=== PATIENT | male | born 1945 | race Caucasian/White ===

== ENCOUNTER 2017-09-03 10:56 | Inpatient (IN) ==
--- NOTE | 2017-09-03 11:10 | Emergency Department Note ---
Disposition Clinical Impression: CVA (cerebral vascular accident) Qualifiers: CVA mechanism: unspecified Qualified Code(s): I63.9 - Cerebral infarction, unspecified Disposition: Admitted As Inpatient Condition: Fair Referrals: Cheo Bergman DO [Primary Care Provider] - Time of Disposition: 13:00 Neuro HPI - General Stated Complaint: acute stroke Time Seen by Provider: 09/03/17 10:57 Source: patient Mode of arrival: wheelchair Limitations: no limitations Nursing Notes Reviewed: Yes Vital Signs Reviewed: Yes - History of Present Illness HPI Narrative: 72-year-old who presents with acute confusion that began actually on 2017. Patient has been seen by neurology and actually was seen today for follow -up of an MRI. MRI shows a restricted diffusion in the left greater than right the differential to consider would be hypoxic ischemic injury or subacute infarct parietal lobes bilaterally. Discussion of with neurology indicates obtain imaging with and without and admit and they will see the patient in consult. Onset of Symptoms Date: 06/14/17 Symptom Onset Unknown: Yes Timing confirmed by: spouse Location: other (Confusion) Severity: none Symptoms Improving: No Improves with: none Worsens with: none Context: sudden onset On Anticoagulants: No Associated symptoms: Reports: confusion Treatments Prior to Arrival: none - Related Data Home Medications: Home Medications Medication Instructions Recorded Confirmed Atenolol [Tenormin] 75 mg PO DAILY 08/16/17 08/16/17 Atorvastatin [Lipitor] 20 mg PO HS 08/16/17 08/16/17 FLUoxetine HCl [PROzac] 20 mg PO DAILY 08/16/17 08/16/17 HydrOXYzine 25 mg PO TID 08/16/17 08/16/17 amLODIPine [Norvasc] 10 mg PO DAILY 08/16/17 08/16/17 Gatifloxacin 09/03/17 Ketorolac OPTH Soln [Acular] 09/03/17 PrednisoLONE Acetate 1% Opth 09/03/17 [PredFORTE 1%] Allergies/Adverse Reactions: Allergies Allergy/AdvReac Type Severity Reaction Status Date / Time No Known Allergies Allergy Verified 04/20/17 12:19 All systems ED: reviewed and negative except as stated. Constitutional: Denies: fever, chills, weakness, weight change Eyes: Denies: eye pain, eye discharge, vision change ENT ED: Denies: ear pain, throat pain, dental pain, hearing loss, epistaxis, congestion, dysphagia Cardiovascular: Denies: chest pain, palpitations, dyspnea on exertion, edema, syncope Respiratory: Denies: cough, dyspnea, wheezes, hemoptysis, stridor Gastrointestinal: Denies: abdominal pain, nausea, vomiting, diarrhea, constipation, hematemesis, melena, hematochezia Genitourinary: Denies: urgency, dysuria, frequency, hematuria Musculoskeletal: Denies: back pain, neck pain, arthralgia, myalgia Integumentary: Denies: rash, abrasion, lesions Neurological: Reports: confusion. Denies: headache, weakness, numbness, paresthesias, abnormal gait, vertigo Psychiatric: Denies: anxiety, depression, suicidal thoughts, homicidal thoughts , auditory hallucinations, visual hallucinations Endocrine: Denies: fatigue Hematological/Lymphatic: Denies: easy bleeding, easy bruising Allergic/Immunologic: Denies: facial swelling, urticaria Past Medical History - Past Medical History Medical history: Reports: cancer, hyperlipidemia, hypertension Surgical history: Reports: vasectomy Psychiatric history: Reports: anxiety, depression - Social History Smoking Status: Current every day smoker Smokeless Tobacco Status: No Alcohol use: Reports: none Drug use: Reports: none Physical Exam - General Limitations: no limitations General appearance: alert, in no apparent distress - Head Head exam: atraumatic, normocephalic, normal inspection - Eye Eye exam: Present: normal appearance, PERRL, EOMI - Expanded Eye Exam Pupils: Left: reactive - ENT ENT exam: normal exam, normal oropharynx, mucous membranes moist - Expanded ENT Exam External ear exam: Present: normal external inspection Mouth exam: Present: normal external inspection Teeth exam: Present: normal inspection Throat exam: Present: normal inspection - Neck Neck exam: Present: normal inspection, full ROM, trachea midline - Chest Chest inspection: Present: normal inspection, symmetric chest wall rise - Respiratory Respiratory exam: Present: normal lung sounds bilaterally - Cardiovascular Cardiovascular exam: Present: regular rate, normal rhythm, normal heart sounds - Abdominal Exam Abdominal exam: Present: soft, Non-Tender. Absent: tenderness, distention, guarding, rebound, rigidity - Extremities Exam Extremities exam: Present: normal inspection, full ROM. Absent: tenderness, pedal edema - Expanded Upper Extremity Exam Shoulder exam: Present: normal inspection, full ROM Arm exam: Present: normal inspection, full ROM Elbow exam: Present: normal inspection, full ROM Forearm/Wrist exam: Present: normal inspection, full ROM Hand exam: Present: normal inspection, full ROM Vascular exam: Normal: capillary refill, radial pulse - Expanded Lower Extremity Exam Hip/Pelvis exam: Present: normal inspection Upper leg exam: Present: normal inspection Knee exam: Present: normal inspection Lower leg exam: Present: normal inspection Ankle exam: Present: normal inspection Foot/toe exam: Present: normal inspection Neurovascular/Tendon exam: Absent: motor deficit, sensory deficit, tendon deficit - Back Exam Back exam: Present: normal inspection, full ROM. Absent: tenderness - Neurological Exam Neurological exam: Present: alert, oriented X3 - Expanded Neurological Exam Patient oriented to: Present: person, place, time Coma Scale Eye Opening: Spontaneous Coma Scale Motor Response: Obeys Commands Coma Scale Verbal Response: Oriented Coma Scale Total: 15 - Psychiatric Psychiatric exam: Present: normal affect, normal mood - Skin Skin exam: Present: warm, dry, intact, normal color Course - Reevaluation(s) Reevaluation #1: Patient is a 72-year-old whose had confusion symptoms since June 14. Patient is followed by neurology who will obtain an MRI with results reviewed with the patient today in a office visit. MRI shows possible stroke. Patient will be admitted for further evaluation and treatment. Time: 11:54 - Consultations Consultation #1: Discussed with Dr. Malave, clarence will see in consult. Patient's symptoms began June 14 and the patient is not a TPA candidate based on timing. Time: 11:54 Consultation #2: Discussed with clarence Arenas. Time: 11:54 Consultation #3: Radiology called nothing acute on the CT of the head and neck Time: 13:00 Vital Signs Temperature 98.2 F 09/03/17 11:06 Pulse Rate 46 09/03/17 11:06 Respiratory Rate 17 09/03/17 11:06 Blood Pressure 168/68 09/03/17 11:06 O2 Sat by Pulse Oximetry 97 09/03/17 11:06 Temperature 98.2 F 09/03/17 11:06 Pulse Rate 41 09/03/17 11:51 Respiratory Rate 16 09/03/17 11:51 Blood Pressure 148/76 09/03/17 11:51 O2 Sat by Pulse Oximetry 94 09/03/17 11:51 Oxygen Delivery Oxygen Delivery Room Air Neuro Symptoms/Deficit - Lab Data Lab results reviewed: Yes I reviewed the patient's lab results. Result diagrams: 09/03/17 10:58 09/03/17 10:58 Lab Results 09/03/17 09/03/17 09/03/17 Range/Units 10:58 10:58 10:58 WBC 10.4 (4.3-11.1) K/mcL RBC 4.41 (4.19-5.50) M/mcL Hgb 13.6 (12.9-16.9) g/dL Hct 39.6 (37.5-50.1) % MCV 89.8 (83.0-100.0) fL MCH 30.8 (28.0-33.3) pg MCHC 34.3 (31.6-35.5) g/dL RDW 14.7 H (11.5-14.5) % Plt Count 175 (140-400) K/mcL MPV 11.4 (9.4-12.4) fL Immature Gran % 0.4 (0-4) % Seg Neutrophils % 76.8 % Lymphocytes % 15.0 % Monocytes % 7.0 % Eosinophils % 0.4 % Basophils % 0.4 % Neutrophils # 8.0 (1.6-8.9) K/mcL Lymphocytes # 1.6 (0.6-4.6) K/mcL Monocytes # 0.7 (0.0-1.3) K/mcL Eosinophils # 0.0 (0.0-0.6) K/mcL Basophils # 0.0 (0.0-0.2) K/mcL PT 10.6 (9.4-12.1) Seconds INR 1.0 APTT 28.6 (26.0-36.0) Seconds Sodium 138 (136-145) mEq/L Potassium 3.8 (3.5-5.1) mEq/L Chloride 102 (98-107) mEq/L Carbon Dioxide 29 (23-29) mEq/L BUN 18 (8-23) mg/dL Creatinine 1.04 (0.70-1.30) mg/dL Est GFR ( Amer) > 60 (> 60) Est GFR (Non-Af Amer) > 60 (> 60) BUN/Creatinine Ratio 17 (6-26) Glucose 113 H (70-105) mg/dL Calculated Osmolality 289 (280-300) Calcium 9.2 (8.6-10.3) mg/dL Troponin I < 0.03 (< 0.04) ng/mL - Radiology Data Radiology results reviewed: Yes I reviewed the patient's radiology results. - EKG Data EKG attestation: Yes I reviewed and interpreted this EKG. EKG shows normal: sinus rhythm Rate: bradycardia Rhythm: NSR, PAC's [place]/QRS: normal Interpretation: no acute changes NIH Stroke Scale - Level of Consciousness LOC: Alert - LOC Questions LOC Questions: Answers both incorrectly - LOC Commands LOC Commands: Performs both correctly - Best Gaze Best Gaze: Normal - Visual Visual: No visual loss - Facial Palsy Facial Palsy: Normal - Motor Arms Motor Arm-Left: No drift for 10 seconds Motor Arm-Right: No drift for 10 seconds - Motor Legs Motor Leg-Left: No drift for 5 seconds Motor Leg-Right: No drift for 5 seconds - Limb Ataxia Limb Ataxia: Normal, No Ataxia - Sensory Sensory: Normal - Best Language Best Language: No aphasia - Dysarthria Dysarthria: Normal - Extinction and Inattention Extinction and Inattention: Normal - NIHSS Total Score NIHSS Total Score: 2 TPA Checklist - Eligibilty for IV tPA 1. LKW equal to or less than 4.5 hours be before treatment: No - LKW: 3-4.5 hrs Add. Warnings/Precautions Patient/family understanding: The patient/family members have been counseled and understood the risk, benefit , and alternatives of treatment.
[2017-09-03 11:16] LABS: Basophils % 0.4 %; Eosinophils % 0.4 %; Hematocrit 39.6 % (37.5-50.1); Hemoglobin 13.6 g/dL (12.9-16.9); Immature Granulocytes % 0.4 % (0-4); Lymphocytes # 1.6 K/mcL (0.6-4.6); Mean Corpuscular HGB Conc 34.3 g/dL (31.6-35.5); Mean Corpuscular Hemoglobin 30.8 pg (28.0-33.3); Mean Corpuscular Volume 89.8 fL (83.0-100.0); Mean Platelet Volume 11.4 fL (9.4-12.4); Monocytes # 0.7 K/mcL (0.0-1.3); Platelet Count 175 K/mcL (140-400); Red Blood Count 4.41 M/mcL (4.19-5.50); Red Cell Distribution Width 14.7 % (11.5-14.5); Segmented Neutrophils % 76.8 %
[2017-09-03 11:22] LABS: Prothrombin Time 10.6 Seconds (9.4-12.1)
[2017-09-03 11:25] LABS: Activated Partial Thrombo Time 28.6 Seconds (26.0-36.0)
[2017-09-03 11:39] LABS: BUN/Creatinine Ratio 17 (6-26); Blood Urea Nitrogen 18 mg/dL (8-23); Calcium 9.2 mg/dL (8.6-10.3); Carbon Dioxide 29 mEq/L (23-29); Chloride 102 mEq/L (98-107); Glucose 113 mg/dL (70-105); Osmolality,Calculated 289 (280-300); Potassium 3.8 mEq/L (3.5-5.1); Sodium 138 mEq/L (136-145); Troponin I < 0.03 ng/mL (< 0.04); eGFR For African Americans > 60 (> 60); eGFR For Non-African Americans > 60 (> 60)
[2017-09-03] MEDS ORDERED: Naloxone 0.4 MG/ML INJ IVP PRN (13:05)
--- NOTE | 2017-09-03 13:19 | Internal Med History&Physical ---
<Marshall Carranza - Last Filed: 09/03/17 16:42> Date of Encounter: 09/03/17 Time of Encounter: 13:13 Internal Medicine - H&P: HPI Chief complaint: Increasing confusion, concern for cerebral ischemia Admitted From: Home Plans for Post Hospital Care: Home History of present illness: Mr. Monge is a 72 year old male with a PMH of cancer, HLD and HTN. Presents today from the neurology office due to increasing confusion. The patient has been having worsening confusion since 06/14/17. He was at his neurologist's office today for follow-up on MRI. MRI shows a restricted diffusion in the parietal lobes left greater than right. Neurology is requested the patient be admitted for further workup and evaluation as there is concern for cerebral ischemia. Patient reports that throughout the last 2-1/2 months he has been having increasing confusion, he reports that he is no longer able to use a computer, cell phone or even television remote control as he can no longer comprehend how they function. He denies any vision changes, ataxia, headaches, paresthesias, chest pain, recent illnesses or ill contacts, N/V/D. As of today' s visit he is continuing to report confusion is now also experiencing some memory loss. Due to worsening clinical status he is being admitted for further evaluation. Past Med Surg Social Fam HX - Past Medical History Medical history: cancer, hyperlipidemia, hypertension Psychiatric history: anxiety, depression - Past Surgical History Surgical History: vasectomy - Social History Smoking Status: Current every day smoker Smokeless Tobacco Status: No Alcohol use: none Drug use: none - Family History Father Hx Family Cardiac Disorders: Yes ([place]) Internal Medicine - H&P: Meds Atenolol [Tenormin] 75 mg PO DAILY 08/16/17 [History] Atorvastatin [Lipitor] 20 mg PO HS 08/16/17 [History] FLUoxetine HCl [PROzac] 20 mg PO DAILY 08/16/17 [History] HydrOXYzine 25 mg PO TID 08/16/17 [History] amLODIPine [Norvasc] 10 mg PO DAILY 08/16/17 [History] 3 Allergy/AdvReac Type Severity Reaction Status Date / Time No Known Allergies Allergy Verified 04/20/17 12:19 All Systems PM: A 10-system review of systems was performed and is negative for pertinent findings except as documented above in the HPI. - Constitutional Constitutional: no chills, no fever(s), no night sweats - Cardiovascular Cardiovascular ROS IM: no chest pain, no diaphoresis, no dyspnea, no lightheadedness, no palpitations, no syncope - Respiratory Respiratory: no cough, no dyspnea, no wheezing, no excessive phlegm production - Gastrointestinal Gastrointestinal: no abdominal pain, no diarrhea, no hematemesis, no hematochezia, no melena, no nausea, no vomiting - Genitourinary Genitourinary ROS male: no difficulty urinating, no dysuria, no flank pain - Musculoskeletal Musculoskeletal ROS IM: no numbness, no tingling - Integumentary Integumentary IM: no rash, no unusual bruising - Neurological Neurological ROS: as per HPI - Constitutional Vitals: Temp Pulse Resp BP Pulse Ox 98.2 F 41 14 157/80 95 09/03/17 11:06 09/03/17 13:09 09/03/17 13:09 09/03/17 13:09 09/03/17 13:09 General appearance: Present: cooperative, A&O X 3, no acute distress, answers questions appropriately - Head Head exam: Present: atraumatic, normocephalic - Eye Eye exam: Present: PERRL, conjuntiva pink, sclera anicteric Pupils: Present: PERRL - Neck Neck exam general surgery: Present: supple, trachea midline. Absent: lymphadenopathy - Respiratory Respiratory exam: Present: CTAB. Absent: accessory muscle use, rales, rhonchi, wheezes - Cardiovascular Cardiovascular exam: Present: bradycardia, +S1, +S2. Absent: diastolic murmur, gallop, rubs, systolic murmur - GI/Abdominal GI/Abdominal exam: Present: normal bowel sounds, soft, no peritoneal signs. Absent: distended, tenderness - Extremities Exam Extremities exam: Present: warm, radial pulses palpable and symmetrical. Absent : calf tenderness, cyanotic, pedal edema - Neurological Exam Neurological exam: Present: CN II-XII intact, oriented X3, no focal deficits. Absent: pronater drift, facial droop, speech deficit - Skin Skin exam: Present: dry, intact Internal Med - H&P Results - Labs CBC & Chem 7: 09/03/17 10:58 09/03/17 10:58 Labs: Short CBC 09/03/17 Range/Units 10:58 WBC 10.4 (4.3-11.1) K/mcL Hgb 13.6 (12.9-16.9) g/dL Hct 39.6 (37.5-50.1) % Plt Count 175 (140-400) K/mcL Neutrophils # 8.0 (1.6-8.9) K/mcL BMP 09/03/17 10:58 Sodium 138 Potassium 3.8 Chloride 102 Carbon Dioxide 29 BUN 18 Creatinine 1.04 Glucose 113 H Calcium 9.2 Cardiac Enzymes 09/03/17 Range/Units 10:58 Troponin I < 0.03 (< 0.04) ng/mL - EKG Data -: EKG Interpreted by Myself EKG shows normal: sinus rhythm Rate: bradycardia - EKG Data Prior EKG available for review: no EKG comments: 09/03/17 13:20 My review of EKG reveals sinus bradycardia rate 46 with occasional supraventricular premature complexes, no ST elevation, depression or T-wave inversion noted - Impressions ITS Impressions Angiography CT 09/03/17 00:00 IMPRESSION: 1. No acute intracranial abnormality. Parenchymal volume loss and sequela of chronic microvascular ischemic changes. 2. No hemodynamically significant stenosis or branch occlusion in the cervical or intracranial arterial circulation. 3. 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 4. Heterogeneous thyroid gland with right thyroid lobe nodule measuring 1.8 x 2 cm. Nonemergent thyroid ultrasound recommended for further evaluation, per criteria listed below. Findings were discussed with Cliff Wallace at 12:48 pm on 09/03/2017. RECOMMENDATIONS: Managing Incidental Thyroid Nodule Detected at CT or MRI or US 1. Further evaluation by thyroid Ultrasound recommended for these incidental nodules: Patient Age 18 years or less - Nodule of any size Patient Age 19-34 years old - Nodule 1 cm in size or greater Patient Age 35 years or more - Nodule 1.5 cm in size or greater 2. Follow up thyroid ultrasound also recommend in these scenarios - Solitary nodule with high risk imaging features (locally invasive nodule or suspicious lymph nodes) - Heterogeneous, enlarged thyroid gland. - Increased uptake on PET 3. No further imaging is recommended in the following scenarios - Any nodule not meeting above criteria. - Those patients with limited life expectancy or significant co-morbidities. Note: These recommendations do not apply to pts. w/ increased risk for thyroid cancer or pts. with symptomatic thyroid disease. Recommendations for f/u of Incidental Thyroid Nodules (ITN) found on CT, MR, NM and Extrathyroidal US are based upon the ACR white paper and Uriarte 3-tiered system for managing ITNs: J Am Dakota Radiol. 2015 Jun;12(2): 143-50 D/ /03/2017 13:02:11 Donald Jorge MD / elijah Interpreting Provider: Donald Jorge MD Neck CTA 09/03/17 00:00 IMPRESSION: 1. No acute intracranial abnormality. Parenchymal volume loss and sequela of chronic microvascular ischemic changes. 2. No hemodynamically significant stenosis or branch occlusion in the cervical or intracranial arterial circulation. 3. 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 4. Heterogeneous thyroid gland with right thyroid lobe nodule measuring 1.8 x 2 cm. Nonemergent thyroid ultrasound recommended for further evaluation, per criteria listed below. Findings were discussed with Cliff Wallace at 12:48 pm on 09/03/2017. RECOMMENDATIONS: Managing Incidental Thyroid Nodule Detected at CT or MRI or US 1. Further evaluation by thyroid Ultrasound recommended for these incidental nodules: Patient Age 18 years or less - Nodule of any size Patient Age 19-34 years old - Nodule 1 cm in size or greater Patient Age 35 years or more - Nodule 1.5 cm in size or greater 2. Follow up thyroid ultrasound also recommend in these scenarios - Solitary nodule with high risk imaging features (locally invasive nodule or suspicious lymph nodes) - Heterogeneous, enlarged thyroid gland. - Increased uptake on PET 3. No further imaging is recommended in the following scenarios - Any nodule not meeting above criteria. - Those patients with limited life expectancy or significant co-morbidities. Note: These recommendations do not apply to pts. w/ increased risk for thyroid cancer or pts. with symptomatic thyroid disease. Recommendations for f/u of Incidental Thyroid Nodules (ITN) found on CT, MR, NM and Extrathyroidal US are based upon the ACR white paper and Uriarte 3-tiered system for managing ITNs: J Am Dakota Radiol. 2014;12(2): 143-50 D/ /03/2017 13:02:11 Donald Jorge MD / elijah Interpreting Provider: Donald Jorge MD - Assessment and plan (1) CVA (cerebral vascular accident) Current Visit: Yes Status: Resolved Assessment and plan: Presents from neurology office with concern for increasing confusion since 06/14. During his initial neurology evaluation his MRI showed restricted diffusion in the parietal lobes bilaterally left greater than right. CVA, vs Vasculitis. In addition to confusion he has short-term memory loss. No other neurological deficits. No focal deficits on exam. Lab work unremarkable. -Stat CT angiography and CTA of head of head and completed today and found to be negative for acute ischemia -TTE now -Start ASA -Continue Statin -NIHSS now -Dysphagia screening now -Neuro checks q4hrs -Consult Neurology- a physician spoke with Dr. Ayon who will see the patient in consultation. -Heparin 5000units SC BID -Continuous telemetry and SPO2 monitoring Qualifiers: CVA mechanism: unspecified Qualified Code(s): I63.9 - Cerebral infarction, unspecified (2) HTN (hypertension) Current Visit: Yes Status: Acute Assessment and plan: History of hypertension, HYDRALAZINE IVP 10mg Q6hprn for SBP greater than 160 Qualifiers: Hypertension type: essential hypertension Qualified Code(s): I10 - Essential (primary) hypertension (3) HLD (hyperlipidemia) Current Visit: Yes Status: Acute Qualifiers: Hyperlipidemia type: unspecified Qualified Code(s): E78.5 - Hyperlipidemia , unspecified (4) DVT prophylaxis Current Visit: Yes Status: Acute Assessment and plan: Heparin 5000 units SC BID - Time Spent With Patient Total time spent is greater than 50% in coordination of care (as documented) at patient's floor/unit and/or counseling patient: Greater than 35 minutes <[email or web address] [email or web address] - Last Filed: 09/03/17 17:14> Date of Encounter: 09/03/17 Time of Encounter: 15:30 All Systems PM: A 10-system review of systems was performed and is negative for pertinent findings except as documented above in the HPI. - Constitutional Vitals: Temp Pulse Resp BP Pulse Ox 98.1 F 42 18 144/76 95 09/03/17 15:45 09/03/17 15:45 09/03/17 15:45 09/03/17 15:45 09/03/17 15:45 General appearance: Present: cooperative, A&O X 3, pleasant, no acute distress - Head Head exam: Present: atraumatic - Eye Eye exam: Present: PERRL. Absent: scleral icterus Pupils: Present: normal accommodation - ENT ENT exam: Present: mucous membranes dry - Neck Neck exam general surgery: Present: full ROM, supple. Absent: tenderness, nuchal rigidity, thyromegaly - Expanded Neck Exam Neck exam: Absent: carotid bruit - Respiratory Respiratory exam: Present: CTAB - Cardiovascular Cardiovascular exam: Present: bradycardia, +S1, +S2. Absent: diastolic murmur, systolic murmur - GI/Abdominal GI/Abdominal exam: Present: soft. Absent: tenderness - Neurological Exam Neurological exam: Present: alert, CN II-XII intact, oriented X3, no focal deficits, strengths equal and symetr throughout Internal Med - H&P Results - Labs CBC & Chem 7: 09/03/17 10:58 09/03/17 10:58 Labs: Cardiac Enzymes 09/03/17 Range/Units 15:22 Troponin I < 0.03 (< 0.04) ng/mL - EKG Data -: EKG Interpreted by Myself EKG shows normal: sinus rhythm Rate: bradycardia - Attending Attestation I discussed the patient [place]CK[place], PMH, ROS, lab data, and exam findings with Marshall Carranza CNP. I then saw and examined patient independently as well. Patient and his friend state symptoms started about two months ago. He has no focal weakness or deficits. The only issue now is increasing confusion and forgetfulness. His friend also states that he has lost > 40# in the last year and that he has had a loss of appetite. He is a long time smoker and former heavy alcohol drinker. He had recent CT chest about 10 days ago which showed some nodules but no obvious malignancy. His head CT today also showed a thyroid nodule. Given the unexplained weight loss, appetite loss, and increasing confusion, I worry about an occult malignancy. Close follow up chest CT is recommended. I also asked Marshall to order a thyroid ultrasound to evaluate the nodule. I also asked him to order ionized calcium, Folate, and B12 levels in the morning. Neurology will be consulted as well and help with his work-up. Other than my comments above and noted exam findings, I agree with Marshall's assessment and plan. - Assessment and plan (1) CVA (cerebral vascular accident) Current Visit: Yes Status: Resolved Qualifiers: CVA mechanism: unspecified Qualified Code(s): I63.9 - Cerebral infarction, unspecified (2) HTN (hypertension) Current Visit: Yes Status: Acute Qualifiers: Hypertension type: essential hypertension Qualified Code(s): I10 - Essential (primary) hypertension (3) HLD (hyperlipidemia) Current Visit: Yes Status: Acute Qualifiers: Hyperlipidemia type: unspecified Qualified Code(s): E78.5 - Hyperlipidemia , unspecified (4) DVT prophylaxis Current Visit: Yes Status: Acute - Time Spent With Patient Total time spent is greater than 50% in coordination of care (as documented) at patient's floor/unit and/or counseling patient:
[2017-09-03] MEDS ORDERED: Aspirin 81 MG TAB.CHEW PO STA (13:26)
--- NOTE | 2017-09-03 17:08 | Electrocardiograph Report ---
[place] [id number] Test Date: 2017-09-03 Pat Name: Grover Monge Department: 104 Room: 2N04 Gender: M Bulldozer Operator: ROBBIE : 1945 Requested By: Cliff Wallace Order Number: [id number] Reading MD: Zarina Menendez Measurements Intervals Bradley Rate: 46 P: 63 ND: 169 QRS: 56 QRSD: 94 T: 37 QT: 435 QTc: 395 Interpretive Statements SINUS BRADYCARDIA WITH OCCASIONAL SUPRAVENTRICULAR PREMATURE COMPLEXES Electronically Signed On 09-03-2017 17:07:03 EDT by Zarina Menendez
[2017-09-03] MEDS: *HR* Heparin 5,000 UNIT/ML VIAL SQ SCH (21:24)
[2017-09-03] MEDS: hydrOXYzine pamoate 25 MG CAPSULE PO SCH (21:48)
[2017-09-04 05:05] LABS: Folate 9.9 ng/mL (3.0-16.0)
[2017-09-04] MEDS: *HR* Heparin 5,000 UNIT/ML VIAL SQ SCH ×2 (06:09→17:24)
[2017-09-04 06:21] LABS: VBG Ionized Calcium 1.15 mmol/L (1.15-1.35)
--- NOTE | 2017-09-04 08:06 | Neurology Progress Note ---
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 Generally laminar necrosis occurs in the face of global hypoxia often relative to cardiopulmonary arrest, or situations where there is profound hypoglycemia or anemia. Status epilepticus can also cause this. However office far as November panel and CBC had been unimpressive. 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 We will check methylmalonic acid since his B12 level was low , we will check RPR, EDEL, Lyme titer, angiotensin converting enzyme levels, sedimentation rate, serum immunoelectrophoresis, serum protein electrophoresis, C-reactive protein and an EEG. If this workup is negative then we will pursue LP. Certainly the anterior communicating artery aneurysm will require intervention however at this point I do not believe that is at risk for rupture and certainly it is not causing any mental status changes or the laminar necrosis. Qualifiers: Qualified Code(s): R41.82 - Altered mental status, unspecified Subjective Interval history: The chart was reviewed, patient was seen and examined. Case discussed with Dr. Malave. Patient is a 72-year-old male who was referred to Dr. Malave secondary to progressive cognitive decline. Apparently the symptoms have been present for about 2-1/2 months or so and have been increasingly evolving. According to the history and the chart he is no longer able to use a computer, cellphone or even television remote. At the bedside he is easily aroused to voice he does make eye contact however he cannot give any significant details as to why he is here. For the most part he simply answers "I do not know" He denies headache. Apparently he has not had any acute August epileptic event that can account for this. 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 He denies any history of seizures. He is a daily smoker. Objective - Constitutional Vitals: Temp Pulse Resp BP Pulse Ox 98.2 F 51 20 151/71 95 09/04/17 07:34 09/04/17 07:34 09/04/17 07:34 09/04/17 07:34 09/04/17 07:34 - Neurological Exam Motor examination - right side: 09/15: deltoids, biceps, triceps, process safety specialist, hip flexors, tibialis Anterior, quadriceps, toe extension (EHL), plantarflexion Motor examination - left side: 09/15: deltoids, biceps, triceps, hip flexors, process safety specialist , quadriceps, tibialis Anterior, toe extension (EHL), plantarflexion Sensation intact: Present: other (Difficult to assess sensory functions in an individual who is confused.) Reflex and gait examination: other (Deep tendon reflexes are 2 symmetrically of the biceps triceps and brachial radialis, 3 symmetrically at the patellar, 1 symmetrically at the Achilles. No clonus or Babinski are present.) Mental Status Examination: Present: awake, alert, oriented to person, follows commands appropriately (He follows some commands appropriately however he is apraxic with others.), opens eyes to voice, makes eye contact, hook and gasp reflex, motor apraxia. Absent: oriented to place, oriented to time Cranial nerve examination: Present: PERRL, EOMI, mastication intact, no facial asymmetry is present, no dysarthria, hearing is intact symmetrically Results - Laboratory Findings CBC and BMP: 09/03/17 10:58 09/03/17 10:58 Abnormal lab findings: Abnormal lab results RDW 14.7 % (11.5-14.5) H 09/03/17 10:58 Glucose 113 mg/dL (70-105) H 09/03/17 10:58 POC Glucose 118 mg/dL (70-99) H 09/03/17 11:01 Vitamin B12 232 pg/mL (250-1100) L 09/04/17 03:13 Consult Discharge Plan - Plan Referrals: Cheo Bergman DO [Primary Care Provider] - 09/10/17 11:30 am
[2017-09-04] MEDS ORDERED: amLODIPine 5 MG TABLET PO SCH (09:00)
[2017-09-04 09:05] LABS: C-Reactive Protein < 5 mg/L (Less than 10)
[2017-09-04] MEDS: hydrOXYzine pamoate 25 MG CAPSULE PO SCH ×3 (09:19→20:52)
[2017-09-04] MEDS: Aspirin 81 MG TAB.CHEW PO SCH (09:19)
[2017-09-04] MEDS: FLUoxetine 20 MG CAPSULE PO SCH (09:19)
[2017-09-04] MEDS ORDERED: Cyanocobalamin (B-12) 1,000 MCG/ML VIAL SQ ONE (09:46)
[2017-09-04 10:03] LABS: Thyroid Stimulating Hormone 0.385 mcIU/mL (0.340-5.600)
[2017-09-04] MEDS ORDERED: 0.9 % Sodium Chloride 250 ML ONE (13:44)
--- NOTE | 2017-09-04 15:57 | Internal Med Progress Note ---
Date of Encounter: 09/04/17 Time of Encounter: 09:30 - Assessment and plan (1) CVA (cerebral vascular accident) Current Visit: Yes Status: Suspected Assessment and plan: Presents from neurology office with concern for increasing confusion since 06/14. During his initial neurology evaluation his MRI showed restricted diffusion in the parietal lobes bilaterally left greater than right. CVA, vs Vasculitis. In addition to confusion he has short-term memory loss. No other neurological deficits. No focal deficits on exam. Lab work unremarkable. Continue telemetry monitoring. Continue aspirin. EEG performed today to r/o seizures. Follow neuro recs and requested labs with RPR, ESR Qualifiers: CVA mechanism: unspecified Qualified Code(s): I63.9 - Cerebral infarction, unspecified (2) HTN (hypertension) Current Visit: Yes Status: Acute Assessment and plan: History of hypertension, HYDRALAZINE IVP 10mg Q6hprn for SBP greater than 160 Qualifiers: Hypertension type: essential hypertension Qualified Code(s): I10 - Essential (primary) hypertension (3) HLD (hyperlipidemia) Current Visit: Yes Status: Acute Assessment and plan: Continue atorvastatin Qualifiers: Hyperlipidemia type: unspecified Qualified Code(s): E78.5 - Hyperlipidemia , unspecified (4) DVT prophylaxis Current Visit: Yes Status: Acute Assessment and plan: Heparin 5000 units SC BID - Time Spent With Patient Total time spent is greater than 50% in coordination of care (as documented) at patient's floor/unit and/or counseling patient: - Subjective Interval history: Admitted for worsening confusion. No acute events overnight - Constitutional Vitals: Temp Pulse Resp BP Pulse Ox 97.9 F 52 20 159/82 97 09/04/17 15:35 09/04/17 15:35 09/04/17 15:35 09/04/17 15:35 09/04/17 15:35 General appearance: Present: cooperative, A&O X 3, pleasant, no acute distress - Head Head exam: Present: atraumatic, normocephalic - Eye Eye exam: Present: PERRL - Respiratory Respiratory exam: Present: CTAB - Cardiovascular Cardiovascular exam: Present: +S1, +S2 - GI/Abdominal GI/Abdominal exam: Present: normal bowel sounds, soft - Neurological Exam Neurological exam: Present: alert Additional comments: pt takes time to answer basic questions. Not oriented to month and day Internal Medicine: Result - Labs CBC & Chem 7: 09/03/17 10:58 09/03/17 10:58 Labs: Cardiac Enzymes 09/03/17 Range/Units 15:22 Troponin I < 0.03 (< 0.04) ng/mL - ABG Interpretation ABG results: PT/INR, D-dimer PT 10.6 Seconds (9.4-12.1) 09/03/17 10:58 - Impressions Impressions Thyroid Ultrasound 09/04/17 15:30 IMPRESSION: Examination is limited in sensitivity. Manager [employer] states that the thyroid gland was difficult to image due to the positioning of the patient's clavicles. There is suggestion of 15 mm nodule in the inferior portion of the right lobe of the thyroid gland; however, on the images provided this is not well delineated. If there is ongoing concern, I would suggest a nuclear medicine uptake test to assess for any concerning/cold nodules. RECOMMENDATIONS: Managing Incidental Thyroid Nodule Detected at CT or MRI or US 1. Further evaluation by thyroid Ultrasound recommended for these incidental nodules: Patient Age 18 years or less - Nodule of any size Patient Age 19-34 years old - Nodule 1 cm in size or greater Patient Age 35 years or more - Nodule 1.5 cm in size or greater 2. Follow up thyroid ultrasound also recommend in these scenarios - Solitary nodule with high risk imaging features (locally invasive nodule or suspicious lymph nodes) - Heterogeneous, enlarged thyroid gland. - Increased uptake on PET 3. NO further imaging is recommended in the following scenarios - Any nodule not meeting above criteria. - Those patients with limited life expectancy or significant Co-morbidities. Note: These recommendations do not apply to pts. w/ increased risk for thyroid cancer or pts. with symptomatic thyroid disease. Recommendations for f/u of Incidental Thyroid Nodules (ITN) found on CT, MR, NM and Extrathyroidal US are based upon the ACR white paper and Uriarte 3-tiered system for managing ITNs: J Am Dakota Radiol. 2015 Jun;12(2): 143-50 D/ / Rashi Richardson / Rashi Richardson Interpreting Provider: Rashi Richardson Consult Discharge Plan - Plan Referrals: Cheo Bergman DO [Primary Care Provider] - 09/10/17 11:30 am
[2017-09-05 05:05] LABS: Basophils % 0.5 %; Eosinophils # 0.1 K/mcL (0.0-0.6); Eosinophils % 1.5 %; Hematocrit 35.7 % (37.5-50.1); Hemoglobin 12.2 g/dL (12.9-16.9); Immature Granulocytes % 0.5 % (0-4); Lymphocytes # 2.2 K/mcL (0.6-4.6); Lymphocytes % 25.8 %; Mean Corpuscular HGB Conc 34.2 g/dL (31.6-35.5); Mean Corpuscular Volume 90.6 fL (83.0-100.0); Mean Platelet Volume 12.4 fL (9.4-12.4); Monocytes # 0.7 K/mcL (0.0-1.3); Monocytes % 8.6 %; Neutrophils # 5.5 K/mcL (1.6-8.9); Platelet Count 142 K/mcL (140-400); Red Blood Count 3.94 M/mcL (4.19-5.50); Red Cell Distribution Width 14.7 % (11.5-14.5); Segmented Neutrophils % 63.1 %
[2017-09-05 05:19] LABS: BUN/Creatinine Ratio 19 (6-26); Blood Urea Nitrogen 15 mg/dL (8-23); Calcium 8.7 mg/dL (8.6-10.3); Carbon Dioxide 29 mEq/L (23-29); Chloride 106 mEq/L (98-107); Glucose 97 mg/dL (70-105); Magnesium 1.8 mg/dL (1.6-2.6); Osmolality,Calculated 287 (280-300); Potassium 3.3 mEq/L (3.5-5.1); Sodium 138 mEq/L (136-145); eGFR For African Americans > 60 (> 60); eGFR For Non-African Americans > 60 (> 60)
[2017-09-05] MEDS: *HR* Heparin 5,000 UNIT/ML VIAL SQ SCH ×2 (06:02→16:48)
[2017-09-05] MEDS: hydrOXYzine pamoate 25 MG CAPSULE PO SCH ×3 (07:56→20:53)
[2017-09-05] MEDS: Cyanocobalamin (B-12) 1,000 MCG TABLET PO SCH (07:56)
[2017-09-05] MEDS: FLUoxetine 20 MG CAPSULE PO SCH (07:56)
[2017-09-05] MEDS: Aspirin 81 MG TAB.CHEW PO SCH (07:56)
[2017-09-05] MEDS ORDERED: Potassium Chloride Elixir 20 MEQ/15 ML UDC PO ONE (08:07)
--- NOTE | 2017-09-05 08:14 | Internal Med Progress Note ---
Date of Encounter: 09/05/17 Time of Encounter: 08:00 - Assessment and plan (1) Mental status change Current Visit: Yes Status: Acute Assessment and plan: Mental status change with subacute cognitive decline. MRI showed cortical laminar necrosis. Labs significant for B12 deficiency. Started on B12 supplementation Follow neuro recs Qualifiers: (2) CVA (cerebral vascular accident) Current Visit: Yes Status: Suspected Assessment and plan: Presents from neurology office with concern for increasing confusion since 06/14. During his initial neurology evaluation his MRI showed restricted diffusion in the parietal lobes bilaterally left greater than right. CVA, vs Vasculitis. In addition to confusion he has short-term memory loss. No other neurological deficits. No focal deficits on exam. Lab work unremarkable. Continue telemetry monitoring. Continue aspirin. EEG performed today to r/o seizures. Follow neuro recs and requested labs with RPR, ESR Qualifiers: CVA mechanism: unspecified Qualified Code(s): I63.9 - Cerebral infarction, unspecified (3) HTN (hypertension) Current Visit: Yes Status: Acute Assessment and plan: History of hypertension, HYDRALAZINE IVP 10mg Q6hprn for SBP greater than 160 Qualifiers: Hypertension type: essential hypertension Qualified Code(s): I10 - Essential (primary) hypertension (4) HLD (hyperlipidemia) Current Visit: Yes Status: Acute Assessment and plan: Continue atorvastatin Qualifiers: Hyperlipidemia type: unspecified Qualified Code(s): E78.5 - Hyperlipidemia , unspecified (5) DVT prophylaxis Current Visit: Yes Status: Acute Assessment and plan: Heparin 5000 units SC BID - Time Spent With Patient Total time spent is greater than 50% in coordination of care (as documented) at patient's floor/unit and/or counseling patient: - Subjective Interval history: Admitted for worsening confusion. No acute events overnight - Constitutional Vitals: Temp Pulse Resp BP Pulse Ox 97.7 F 51 16 184/91 98 09/05/17 06:57 09/05/17 06:57 09/05/17 06:57 09/05/17 06:57 09/05/17 06:57 General appearance: Present: cooperative, A&O X 1, pleasant, no acute distress - Head Head exam: Present: atraumatic, normocephalic - Respiratory Respiratory exam: Present: CTAB. Absent: accessory muscle use, rales, rhonchi, wheezes - Neurological Exam Neurological exam: Present: CN II-XII intact, oriented X3, no focal deficits. Absent: pronater drift, facial droop, speech deficit Internal Medicine: Result - Labs CBC & Chem 7: 09/05/17 04:33 09/05/17 04:33 Labs: Short CBC 09/05/17 Range/Units 04:33 WBC 8.6 (4.3-11.1) K/mcL Hgb 12.2 L (12.9-16.9) g/dL Hct 35.7 L (37.5-50.1) % Plt Count 142 (140-400) K/mcL Neutrophils # 5.5 (1.6-8.9) K/mcL BMP 09/05/17 04:33 Sodium 138 Potassium 3.3 L Chloride 106 Carbon Dioxide 29 BUN 15 Creatinine 0.80 Glucose 97 Calcium 8.7 - ABG Interpretation ABG results: PT/INR, D-dimer PT 10.6 Seconds (9.4-12.1) 09/03/17 10:58 - Impressions Impressions Thyroid Ultrasound 09/04/17 15:30 IMPRESSION: Examination is limited in sensitivity. Clinical Consultant states that the thyroid gland was difficult to image due to the positioning of the patient's clavicles. There is suggestion of 15 mm nodule in the inferior portion of the right lobe of the thyroid gland; however, on the images provided this is not well delineated. If there is ongoing concern, I would suggest a nuclear medicine uptake test to assess for any concerning/cold nodules. RECOMMENDATIONS: Managing Incidental Thyroid Nodule Detected at CT or MRI or US 1. Further evaluation by thyroid Ultrasound recommended for these incidental nodules: Patient Age 18 years or less - Nodule of any size Patient Age 19-34 years old - Nodule 1 cm in size or greater Patient Age 35 years or more - Nodule 1.5 cm in size or greater 2. Follow up thyroid ultrasound also recommend in these scenarios - Solitary nodule with high risk imaging features (locally invasive nodule or suspicious lymph nodes) - Heterogeneous, enlarged thyroid gland. - Increased uptake on PET 3. NO further imaging is recommended in the following scenarios - Any nodule not meeting above criteria. - Those patients with limited life expectancy or significant Co-morbidities. Note: These recommendations do not apply to pts. w/ increased risk for thyroid cancer or pts. with symptomatic thyroid disease. Recommendations for f/u of Incidental Thyroid Nodules (ITN) found on CT, MR, NM and Extrathyroidal US are based upon the ACR white paper and Uriarte 3-tiered system for managing ITNs: J Am Dakota Radiol. 2015 Jun;12(2): 143-50 D/ / Rashi Richardson / Rashi Richardson Interpreting Provider: Rashi Richardson - VTE Documentation of Mechanical Device: Venous foot pump, device Consult Discharge Plan - Plan Referrals: Cheo Bergman DO [Primary Care Provider] - 09/10/17 11:30 am
[2017-09-05 10:27] LABS: Lyme Disease Total Antibody Negative (Negative)
--- NOTE | 2017-09-05 15:23 | EEG/EMG/Oth Biometrics Report ---
EEG Procedure Report Date of procedure: 09/05/17 EEG Procedure: Routine EEG Procedure Note: This is a report of a 21 channel bipolar and referential montage EEG. A posterior dominant rhythm of 6-7 Hz moderate to low voltage theta frequencies identified symmetrically in the posterior head regions. This rhythm is not reactive to eye opening. Hyperventilation is not performed in recording. Periods of drowsiness and stage II sleep identified as reference by dropout of posterior dominant rhythm, and emergence of vertex activity, K complexes, and sleep spindles. Photic stimulations performed and does not produce a driving response. EKG rhythm strip reveals sinus bradycardia at 42 bpm. Impressions: This EEG recording is abnormal and is consistent with a mild generalized encephalopathy. There is no evidence of epileptiform activity identified during the study. Comment: An EEG unrevealing of seizure activity does not preclude a diagnosis of seizure or epilepsy. If the clinical suspicion for seizure activity is high , serial EEGs or perhaps a prolonged recording may increase the yield. Sinus bradycardia at 42 beats per minutes is also present.
--- NOTE | 2017-09-05 16:48 | Procedure Note ---
Date of procedure: 09/05/17 Pre-op diagnosis: Confusion/mental status changes etiology unknown Post-op diagnosis: same Procedure: Lumbar puncture note: Patient was prepped and draped in the normal sterile fashion. Landmarks were assessed and localized to the L3-L4 disc interspace. The L3-L4 disc interspace was anesthetized with 1% lidocaine and a 20-gauge spinal needle was introduced. Several attempts were made at this level unsuccessfully. Landmarks were again reassessed and localized to the L2-L3 interspace. The L2-L3 interspace was anesthetized with 1% lidocaine and a 20-gauge needle was introduced. Initially blood-tinged cerebrospinal fluid was expelled which cleared with progression of the tap. A total of 8 mL of clear CSF was collected. The spinal needle was removed, hemostasis was achieved. Patient tolerated procedure without difficulty. Surgeon: Jed Ayno Was there an reference assistant present: No Estimated blood loss (cc): 0 Specimen: CSF Condition: stable
[2017-09-05 17:46] LABS: Red Blood Cell,CSF < 0.002 M/mcL
[2017-09-05 18:30] LABS: Appearance,CSF Clear (Clear)
[2017-09-05 18:57] LABS: Glucose,CSF 72 mg/dL (40-70); Total Protein,CSF 46 mg/dL (15-45)
[2017-09-06 04:48] LABS: Basophils % 0.3 %; Eosinophils # 0.1 K/mcL (0.0-0.6); Eosinophils % 0.9 %; Hematocrit 37.2 % (37.5-50.1); Hemoglobin 12.7 g/dL (12.9-16.9); Immature Granulocytes % 0.3 % (0-4); Lymphocytes # 2.2 K/mcL (0.6-4.6); Lymphocytes % 21.8 %; Mean Corpuscular HGB Conc 34.1 g/dL (31.6-35.5); Mean Corpuscular Hemoglobin 30.8 pg (28.0-33.3); Mean Corpuscular Volume 90.3 fL (83.0-100.0); Mean Platelet Volume 11.6 fL (9.4-12.4); Monocytes # 0.8 K/mcL (0.0-1.3); Monocytes % 7.7 %; Nucleated Red Blood Cells 0.2 /100 WBC (0); Platelet Count 145 K/mcL (140-400); Red Blood Count 4.12 M/mcL (4.19-5.50); Red Cell Distribution Width 14.8 % (11.5-14.5)
[2017-09-06 05:07] LABS: BUN/Creatinine Ratio 21 (6-26); Blood Urea Nitrogen 19 mg/dL (8-23); Calcium 9.1 mg/dL (8.6-10.3); Carbon Dioxide 29 mEq/L (23-29); Chloride 105 mEq/L (98-107); Glucose 180 mg/dL (70-105); Osmolality,Calculated 297 (280-300); Potassium 3.7 mEq/L (3.5-5.1); Sodium 140 mEq/L (136-145); eGFR For African Americans > 60 (> 60); eGFR For Non-African Americans > 60 (> 60)
[2017-09-06] MEDS: *HR* Heparin 5,000 UNIT/ML VIAL SQ SCH ×2 (06:52→20:56)
--- NOTE | 2017-09-06 08:15 | Neurology Progress Note ---
Date of Encounter: 09/06/17 Time of Encounter: 08:12 Assessment and Plan (1) Mental status change Current Visit: Yes Status: Acute Qualifiers: Qualified Code(s): R41.82 - Altered mental status, unspecified (2) Anoxic brain injury Current Visit: Yes Status: Acute At this juncture the only embolic abnormality we have identified his vitamin B12 deficiency. However this would not be expected to result in cortical laminar necrosis. Generally new laminar necrosis is due to extreme anoxia, hypoglycemia, or some other event that might increase metabolic demand on the cortical tissue such as status epilepticus. My suspicion is that since he has been bradycardic perhaps while sleeping he may have become bradycardic enough to hypoperfusion the brain resulting in this pattern of laminar necrosis. The hippocampus is also very vulnerable to anoxia and ischemia which might explain the problems with short-term memory. The EEG otherwise did not reveal evidence of seizure nor did reveal the typical spike pattern associated with CJD. Lumbar puncture was essentially normal. However the 14-3-3. This study is yet pending. Unfortunately this is likely to be irreversible. Arrangements will have to be made for ongoing care and supervision posthospitalization. I would recommend a trial of Aricept 5 mg daily to start. Recommend ongoing vitamin B12 injections per protocol. He does have an anterior communicating artery aneurysm which can be assessed as an outpatient as he is not having symptoms at this time. However I would recommend that his blood pressure be adequately controlled prior to discharge. I will recommend scheduling appointment with his primary neurologist Dr. Malave after hospital discharge to follow up on these pending issues. The Aricept will need to be titrated up to 10 mg, and he should be referred to a interventional radiologist to consider coiling of the aneurysm. But once again this is not an urgent issue as he is not having symptoms at this time. Consider cardiology evaluation regarding persistent bradycardia. I will reevaluate him at your request. Subjective Interval history: The chart was reviewed, patient was seen and examined. He had no difficulties overnight. Currently he is sitting up in his chair watching television in no acute distress. Patient's blood pressure has been hypertensive throughout the duration of his hospital stay. The lumbar puncture was essentially normal however the 14-3-3 protein assessment is still pending for prion disease. His neurologic assessment remains unchanged. Metabolic workup revealed a vitamin B12 deficiency. The MRI scan of the brain did reveal cortical laminar necrosis posteriorly. His EEG was normal however sinus bradycardia into the 40s was identified. And the CTA of the brain revealed an anterior communicating artery aneurysm dimensions 3.3 x 3.8 x 3.6 mm he denies headaches. Objective - Constitutional Vitals: Temp Pulse Resp BP Pulse Ox 97.6 F 52 19 172/74 96 09/06/17 06:56 09/06/17 07:56 09/06/17 06:56 09/06/17 06:56 09/06/17 06:56 - Neurological Exam Motor Examination: Present: grossly full strength in all extremities Motor examination - right side: 5/5: deltoids, biceps, triceps, unloading checker, hip flexors, tibialis Anterior, quadriceps, toe extension (EHL), plantarflexion Motor examination - left side: 5/5: deltoids, biceps, triceps, hip flexors, unloading checker , quadriceps, tibialis Anterior, toe extension (EHL), plantarflexion Sensation intact: Present: other (Difficult to assess sensory functions in an individual who is confused.) Reflex and gait examination: other (Deep tendon reflexes are 2 symmetrically of the biceps triceps and brachial radialis, 3 symmetrically at the patellar, 1 symmetrically at the Achilles. No clonus or Babinski are present.) Mental Status Examination: Present: awake, alert, oriented to person, follows commands appropriately (He follows some commands appropriately however he is apraxic with others.), makes eye contact, hook and gasp reflex, motor apraxia. Absent: oriented to place, oriented to time Cranial nerve examination: Present: PERRL, EOMI, mastication intact, no facial asymmetry is present, no dysarthria, hearing is intact symmetrically - VTE Documentation of Mechanical Device: Intermittent pneumatic compression device Results - Laboratory Findings CBC and BMP: 09/06/17 04:32 09/06/17 04:32 Abnormal lab findings: Abnormal lab results RBC 4.12 M/mcL (4.19-5.50) L 09/06/17 04:32 Hgb 12.7 g/dL (12.9-16.9) L 09/06/17 04:32 Hct 37.2 % (37.5-50.1) L 09/06/17 04:32 RDW 14.8 % (11.5-14.5) H 09/06/17 04:32 Nucleated RBCs/100 WBC 0.2 /100 WBC (0) H 09/06/17 04:32 ESR 11 mm/hr (0-10) H 09/04/17 08:28 Glucose 180 mg/dL (70-105) H 09/06/17 04:32 POC Glucose 118 mg/dL (70-99) H 09/03/17 11:01 Vitamin B12 232 pg/mL (250-1100) L 09/04/17 03:13 CSF Glucose 72 mg/dL (40-70) H 09/05/17 16:40 CSF Total Protein 46 mg/dL (15-45) H 09/05/17 16:40 Consult Discharge Plan - Plan Referrals: Cheo Bergman DO [Primary Care Provider] - 09/10/17 11:30 am
[2017-09-06] MEDS: FLUoxetine 20 MG CAPSULE PO SCH (08:24)
[2017-09-06] MEDS: hydrOXYzine pamoate 25 MG CAPSULE PO SCH ×3 (08:24→20:51)
[2017-09-06] MEDS: Cyanocobalamin (B-12) 1,000 MCG TABLET PO SCH (08:24)
[2017-09-06] MEDS: Aspirin 81 MG TAB.CHEW PO SCH (08:25)
--- NOTE | 2017-09-06 09:40 | Internal Med Progress Note ---
Date of Encounter: 09/06/17 Time of Encounter: 09:00 - Assessment and plan (1) Mental status change Current Visit: Yes Status: Acute Assessment and plan: Mental status change with subacute cognitive decline with possible dementia. MRI showed cortical laminar necrosis. Labs significant for B12 deficiency. Started on B12 supplementation. Neuro also recommend starting on donepezil. Plan for discharge to assisted living once bed is available (2) CVA (cerebral vascular accident) Current Visit: Yes Status: Suspected Assessment and plan: Presents from neurology office with concern for increasing confusion since 06/14. During his initial neurology evaluation his MRI showed restricted diffusion in the parietal lobes bilaterally left greater than right. CVA, vs Vasculitis. In addition to confusion he has short-term memory loss. EEG showed no evidence of seizures. Plan for discharge on b12 supplementation and donepezil Qualifiers: CVA mechanism: unspecified Qualified Code(s): I63.9 - Cerebral infarction, unspecified (3) HTN (hypertension) Current Visit: Yes Status: Acute Assessment and plan: History of hypertension, hydralazine prn Qualifiers: Hypertension type: essential hypertension Qualified Code(s): I10 - Essential (primary) hypertension (4) HLD (hyperlipidemia) Current Visit: Yes Status: Acute Assessment and plan: Continue atorvastatin Qualifiers: Hyperlipidemia type: unspecified Qualified Code(s): E78.5 - Hyperlipidemia , unspecified (5) DVT prophylaxis Current Visit: Yes Status: Acute Assessment and plan: Heparin 5000 units SC BID - Time Spent With Patient Total time spent is greater than 50% in coordination of care (as documented) at patient's floor/unit and/or counseling patient: - Subjective Interval history: Admitted for worsening confusion. No acute events overnight - Constitutional Vitals: Temp Pulse Resp BP Pulse Ox 97.6 F 52 19 172/74 96 09/06/17 06:56 09/06/17 07:56 09/06/17 06:56 09/06/17 06:56 09/06/17 06:56 General appearance: Present: cooperative, A&O X 1, pleasant, no acute distress - Head Head exam: Present: atraumatic, normocephalic - Eye Eye exam: Present: PERRL, conjuntiva pink, sclera anicteric Pupils: Present: PERRL - Neck Neck exam general surgery: Present: supple, trachea midline. Absent: lymphadenopathy - Respiratory Respiratory exam: Present: CTAB. Absent: accessory muscle use, rales, rhonchi, wheezes - Cardiovascular Cardiovascular exam: Present: RRR, +S1, +S2. Absent: diastolic murmur, gallop, rubs, systolic murmur - GI/Abdominal GI/Abdominal exam: Present: normal bowel sounds, soft, no peritoneal signs. Absent: distended, tenderness - Extremities Exam Extremities exam: Present: warm, radial pulses palpable and symmetrical. Absent : calf tenderness, cyanotic, pedal edema - Neurological Exam Neurological exam: Present: CN II-XII intact, no focal deficits. Absent: pronater drift, facial droop, speech deficit Additional comments: Pt has intermittent episodes of clarity and confusion - Skin Skin exam: Present: dry, intact Internal Medicine: Result - Labs CBC & Chem 7: 09/06/17 04:32 09/06/17 04:32 Labs: Short CBC 09/06/17 Range/Units 04:32 WBC 10.2 (4.3-11.1) K/mcL Hgb 12.7 L (12.9-16.9) g/dL Hct 37.2 L (37.5-50.1) % Plt Count 145 (140-400) K/mcL Neutrophils # 7.0 (1.6-8.9) K/mcL BMP 09/06/17 04:32 Sodium 140 Potassium 3.7 Chloride 105 Carbon Dioxide 29 BUN 19 Creatinine 0.91 Glucose 180 H Calcium 9.1 - ABG Interpretation ABG results: PT/INR, D-dimer PT 10.6 Seconds (9.4-12.1) 09/03/17 10:58 - VTE Documentation of Mechanical Device: Intermittent pneumatic compression device Consult Discharge Plan - Plan Referrals: Cheo Bergman DO [Primary Care Provider] - 09/10/17 11:30 am
[2017-09-06 10:53] LABS: ANA IgG by ELISA NONE DETECTED (None Detected)
[2017-09-06] MEDS: hydrALAZINE 25 MG TABLET PO PRN (13:47)
[2017-09-06] MEDS ORDERED: *HR* LORazepam 1 MG TABLET PO PRN (16:50)
[2017-09-06 18:12] LABS: Alpha 2 Globulin (PEP) 0.77 g/dL (0.48-1.05); Beta Globulin (PEP) 0.73 g/dL (0.48-1.10)
[2017-09-06] MEDS ORDERED: *HR* LORazepam 2 MG/ML VIAL IVP ONE (19:36)
[2017-09-06] MEDS ORDERED: *HR* LORazepam 2 MG/ML VIAL ONE (19:44)
[2017-09-06] MEDS ORDERED: Haloperidol Lactate 5 MG/ML VIAL IVP ONE (19:54)
[2017-09-07 05:15] LABS: Basophils # 0.1 K/mcL (0.0-0.2); Basophils % 0.6 %; Eosinophils # 0.1 K/mcL (0.0-0.6); Eosinophils % 1.3 %; Hematocrit 36.1 % (37.5-50.1); Hemoglobin 12.1 g/dL (12.9-16.9); Immature Granulocytes % 0.3 % (0-4); Lymphocytes # 2.2 K/mcL (0.6-4.6); Lymphocytes % 24.4 %; Mean Corpuscular HGB Conc 33.5 g/dL (31.6-35.5); Mean Corpuscular Hemoglobin 30.3 pg (28.0-33.3); Mean Corpuscular Volume 90.5 fL (83.0-100.0); Mean Platelet Volume 11.8 fL (9.4-12.4); Monocytes # 0.7 K/mcL (0.0-1.3); Monocytes % 8.2 %; Neutrophils # 5.8 K/mcL (1.6-8.9); Platelet Count 134 K/mcL (140-400); Red Blood Count 3.99 M/mcL (4.19-5.50); Red Cell Distribution Width 14.8 % (11.5-14.5); Segmented Neutrophils % 65.2 %
[2017-09-07 05:33] LABS: BUN/Creatinine Ratio 21 (6-26); Blood Urea Nitrogen 19 mg/dL (8-23); Carbon Dioxide 27 mEq/L (23-29); Chloride 105 mEq/L (98-107); Glucose 91 mg/dL (70-105); Osmolality,Calculated 288 (280-300); Potassium 3.9 mEq/L (3.5-5.1); Sodium 138 mEq/L (136-145); eGFR For African Americans > 60 (> 60); eGFR For Non-African Americans > 60 (> 60)
[2017-09-07] MEDS: *HR* Heparin 5,000 UNIT/ML VIAL SQ SCH ×2 (05:34→17:52)
[2017-09-07 07:13] LABS: IFE Reflexed NOT DONE
[2017-09-07] MEDS: FLUoxetine 20 MG CAPSULE PO SCH (08:11)
[2017-09-07] MEDS: amLODIPine 5 MG TABLET PO SCH (08:11)
[2017-09-07] MEDS: hydrOXYzine pamoate 25 MG CAPSULE PO SCH ×3 (08:11→20:39)
[2017-09-07] MEDS: Cyanocobalamin (B-12) 1,000 MCG TABLET PO SCH (08:11)
[2017-09-07] MEDS: Aspirin 81 MG TAB.CHEW PO SCH (08:11)
--- NOTE | 2017-09-07 15:28 | Internal Med Progress Note ---
Date of Encounter: 09/07/17 Time of Encounter: 15:00 - Assessment and plan (1) Mental status change Current Visit: Yes Status: Acute Assessment and plan: Mental status change with subacute cognitive decline with possible dementia. MRI showed cortical laminar necrosis. Labs significant for B12 deficiency. Started on B12 supplementation. Neuro also recommend starting on donepezil. Plan for discharge to assisted living once bed is available (2) CVA (cerebral vascular accident) Current Visit: Yes Status: Suspected Assessment and plan: Presents from neurology office with concern for increasing confusion since 06/14. During his initial neurology evaluation his MRI showed restricted diffusion in the parietal lobes bilaterally left greater than right. CVA, vs Vasculitis. In addition to confusion he has short-term memory loss. EEG showed no evidence of seizures. Plan for discharge on b12 supplementation and donepezil Qualifiers: CVA mechanism: unspecified Qualified Code(s): I63.9 - Cerebral infarction, unspecified (3) HTN (hypertension) Current Visit: Yes Status: Acute Assessment and plan: History of hypertension, hydralazine prn Qualifiers: Hypertension type: essential hypertension Qualified Code(s): I10 - Essential (primary) hypertension (4) HLD (hyperlipidemia) Current Visit: Yes Status: Acute Assessment and plan: Continue atorvastatin Qualifiers: Hyperlipidemia type: unspecified Qualified Code(s): E78.5 - Hyperlipidemia , unspecified (5) DVT prophylaxis Current Visit: Yes Status: Acute Assessment and plan: Heparin 5000 units SC BID - Time Spent With Patient Total time spent is greater than 50% in coordination of care (as documented) at patient's floor/unit and/or counseling patient: - Subjective Interval history: Admitted for worsening confusion. No acute events overnight - Constitutional Vitals: Temp Pulse Resp BP Pulse Ox 98.2 F 54 16 163/72 95 09/07/17 11:29 09/07/17 11:29 09/07/17 11:29 09/07/17 11:29 09/07/17 11:29 General appearance: Present: cooperative, A&O X 1, pleasant, no acute distress - Head Head exam: Present: atraumatic, normocephalic - Eye Eye exam: Present: PERRL, conjuntiva pink, sclera anicteric Pupils: Present: PERRL - Neck Neck exam general surgery: Present: supple, trachea midline. Absent: lymphadenopathy - Respiratory Respiratory exam: Present: CTAB. Absent: accessory muscle use, rales, rhonchi, wheezes - Cardiovascular Cardiovascular exam: Present: RRR, +S1, +S2. Absent: diastolic murmur, gallop, rubs, systolic murmur - GI/Abdominal GI/Abdominal exam: Present: normal bowel sounds, soft, no peritoneal signs. Absent: distended, tenderness - Extremities Exam Extremities exam: Present: warm, radial pulses palpable and symmetrical. Absent : calf tenderness, cyanotic, pedal edema - Neurological Exam Neurological exam: Present: CN II-XII intact, oriented X3, no focal deficits. Absent: pronater drift, facial droop, speech deficit - Skin Skin exam: Present: dry, intact Internal Medicine: Result - Labs CBC & Chem 7: 09/07/17 04:46 09/07/17 04:46 Labs: Short CBC 09/07/17 Range/Units 04:46 WBC 8.9 (4.3-11.1) K/mcL Hgb 12.1 L (12.9-16.9) g/dL Hct 36.1 L (37.5-50.1) % Plt Count 134 L (140-400) K/mcL Neutrophils # 5.8 (1.6-8.9) K/mcL BMP 09/07/17 04:46 Sodium 138 Potassium 3.9 Chloride 105 Carbon Dioxide 27 BUN 19 Creatinine 0.91 Glucose 91 Calcium 9.0 - ABG Interpretation ABG results: PT/INR, D-dimer PT 10.6 Seconds (9.4-12.1) 09/03/17 10:58 - VTE Documentation of Mechanical Device: Intermittent pneumatic compression device Consult Discharge Plan - Plan Referrals: Cheo Bergman DO [Primary Care Provider] - 09/10/17 11:30 am
[2017-09-07] MEDS ORDERED: Haloperidol Lactate 5 MG/ML VIAL IVP ONE (23:07)
[2017-09-08 04:34] LABS: Basophils # 0.1 K/mcL (0.0-0.2); Basophils % 0.6 %; Eosinophils # 0.1 K/mcL (0.0-0.6); Eosinophils % 1.1 %; Hematocrit 38.5 % (37.5-50.1); Hemoglobin 13.2 g/dL (12.9-16.9); Immature Granulocytes % 0.2 % (0-4); Lymphocytes # 2.3 K/mcL (0.6-4.6); Lymphocytes % 26.8 %; Mean Corpuscular HGB Conc 34.3 g/dL (31.6-35.5); Mean Corpuscular Hemoglobin 30.6 pg (28.0-33.3); Mean Corpuscular Volume 89.3 fL (83.0-100.0); Mean Platelet Volume 11.7 fL (9.4-12.4); Monocytes # 0.7 K/mcL (0.0-1.3); Monocytes % 8.1 %; Neutrophils # 5.3 K/mcL (1.6-8.9); Platelet Count 151 K/mcL (140-400); Red Blood Count 4.31 M/mcL (4.19-5.50); Red Cell Distribution Width 14.7 % (11.5-14.5); Segmented Neutrophils % 63.2 %
[2017-09-08 04:53] LABS: BUN/Creatinine Ratio 17 (6-26); Blood Urea Nitrogen 15 mg/dL (8-23); Calcium 9.3 mg/dL (8.6-10.3); Carbon Dioxide 29 mEq/L (23-29); Chloride 102 mEq/L (98-107); Glucose 89 mg/dL (70-105); Osmolality,Calculated 282 (280-300); Sodium 136 mEq/L (136-145); eGFR For African Americans > 60 (> 60); eGFR For Non-African Americans > 60 (> 60)
[2017-09-08] MEDS: *HR* Heparin 5,000 UNIT/ML VIAL SQ SCH ×2 (05:26→17:20)
[2017-09-08] MEDS: amLODIPine 5 MG TABLET PO SCH (10:09)
[2017-09-08] MEDS: FLUoxetine 20 MG CAPSULE PO SCH (10:09)
[2017-09-08] MEDS: Aspirin 81 MG TAB.CHEW PO SCH (10:09)
[2017-09-08] MEDS: hydrOXYzine pamoate 25 MG CAPSULE PO SCH ×3 (10:10→19:54)
[2017-09-08] MEDS: Cyanocobalamin (B-12) 1,000 MCG TABLET PO SCH (10:10)
--- NOTE | 2017-09-08 12:17 | Internal Med Progress Note ---
Date of Encounter: 09/08/17 Time of Encounter: 12:00 - Assessment and plan (1) Mental status change Current Visit: Yes Status: Acute Assessment and plan: Mental status change with subacute cognitive decline with possible dementia. MRI showed cortical laminar necrosis. Labs significant for B12 deficiency. Started on B12 supplementation. Neuro also recommend starting on donepezil. Plan for discharge to assisted living once bed is available Qualifiers: (2) CVA (cerebral vascular accident) Current Visit: Yes Status: Suspected Assessment and plan: Presents from neurology office with concern for increasing confusion since 06/14. During his initial neurology evaluation his MRI showed restricted diffusion in the parietal lobes bilaterally left greater than right. CVA, vs Vasculitis. In addition to confusion he has short-term memory loss. EEG showed no evidence of seizures. Plan for discharge on b12 supplementation and donepezil Qualifiers: CVA mechanism: unspecified Qualified Code(s): I63.9 - Cerebral infarction, unspecified (3) HTN (hypertension) Current Visit: Yes Status: Acute Assessment and plan: History of hypertension, continue amlodipine and hydralazine prn Qualifiers: Hypertension type: essential hypertension Qualified Code(s): I10 - Essential (primary) hypertension (4) HLD (hyperlipidemia) Current Visit: Yes Status: Acute Assessment and plan: Continue atorvastatin Qualifiers: Hyperlipidemia type: unspecified Qualified Code(s): E78.5 - Hyperlipidemia , unspecified (5) DVT prophylaxis Current Visit: Yes Status: Acute Assessment and plan: Heparin 5000 units SC BID - Time Spent With Patient Total time spent is greater than 50% in coordination of care (as documented) at patient's floor/unit and/or counseling patient: - Subjective Interval history: Admitted for worsening confusion. No acute events overnight - Constitutional Vitals: Temp Pulse Resp BP Pulse Ox 98.4 F 57 16 161/83 95 09/08/17 11:04 09/08/17 11:04 09/08/17 11:04 09/08/17 11:04 09/08/17 11:04 General appearance: Present: cooperative, A&O X 1, pleasant, no acute distress - Head Head exam: Present: atraumatic, normocephalic - Eye Eye exam: Present: PERRL, conjuntiva pink, sclera anicteric Pupils: Present: PERRL - Neck Neck exam general surgery: Present: supple, trachea midline. Absent: lymphadenopathy - Respiratory Respiratory exam: Present: CTAB. Absent: accessory muscle use, rales, rhonchi, wheezes - Cardiovascular Cardiovascular exam: Present: RRR, +S1, +S2. Absent: diastolic murmur, gallop, rubs, systolic murmur - GI/Abdominal GI/Abdominal exam: Present: normal bowel sounds, soft, no peritoneal signs. Absent: distended, tenderness - Extremities Exam Extremities exam: Present: warm, radial pulses palpable and symmetrical. Absent : calf tenderness, cyanotic, pedal edema - Neurological Exam Neurological exam: Present: CN II-XII intact, oriented X3, no focal deficits. Absent: pronater drift, facial droop, speech deficit - Skin Skin exam: Present: dry, intact Internal Medicine: Result - Labs CBC & Chem 7: 09/08/17 04:01 09/08/17 04:01 Labs: Short CBC 09/08/17 Range/Units 04:01 WBC 8.4 (4.3-11.1) K/mcL Hgb 13.2 (12.9-16.9) g/dL Hct 38.5 (37.5-50.1) % Plt Count 151 (140-400) K/mcL Neutrophils # 5.3 (1.6-8.9) K/mcL BMP 09/08/17 04:01 Sodium 136 Potassium 4.0 Chloride 102 Carbon Dioxide 29 BUN 15 Creatinine 0.90 Glucose 89 Calcium 9.3 - ABG Interpretation ABG results: PT/INR, D-dimer PT 10.6 Seconds (9.4-12.1) 09/03/17 10:58 - VTE Documentation of Mechanical Device: Intermittent pneumatic compression device Consult Discharge Plan - Plan Referrals: Cheo Bergman DO [Primary Care Provider] - 09/10/17 11:30 am
[2017-09-08] MEDS: Nicotine 21 MG PATCH.TD24 TD SCH (15:33)
[2017-09-09] MEDS: *HR* Heparin 5,000 UNIT/ML VIAL SQ SCH ×2 (05:38→17:59)
[2017-09-09] MEDS: Nicotine 21 MG PATCH.TD24 TD SCH (08:25)
[2017-09-09] MEDS: amLODIPine 5 MG TABLET PO SCH (08:25)
[2017-09-09] MEDS: Cyanocobalamin (B-12) 1,000 MCG TABLET PO SCH (08:26)
[2017-09-09] MEDS: Aspirin 81 MG TAB.CHEW PO SCH (08:26)
[2017-09-09] MEDS: FLUoxetine 20 MG CAPSULE PO SCH (08:26)
[2017-09-09] MEDS: hydrOXYzine pamoate 25 MG CAPSULE PO SCH ×3 (08:26→20:13)
--- NOTE | 2017-09-09 12:26 | Internal Med Progress Note ---
Date of Encounter: 09/09/17 Time of Encounter: 12:30 - Assessment and plan (1) Mental status change Current Visit: Yes Status: Acute Assessment and plan: Mental status change with subacute cognitive decline with possible dementia. MRI showed cortical laminar necrosis. Labs significant for B12 deficiency. Started on B12 supplementation. Neuro also recommend starting on donepezil. Plan for discharge to assisted living once bed is available Qualifiers: Altered mental status type: unspecified Qualified Code(s): R41.82 - Altered mental status, unspecified (2) CVA (cerebral vascular accident) Current Visit: Yes Status: Suspected Assessment and plan: Presents from neurology office with concern for increasing confusion since 06/14. During his initial neurology evaluation his MRI showed restricted diffusion in the parietal lobes bilaterally left greater than right. CVA, vs Vasculitis. In addition to confusion he has short-term memory loss. EEG showed no evidence of seizures. Plan for discharge on b12 supplementation and donepezil Qualifiers: CVA mechanism: unspecified Qualified Code(s): I63.9 - Cerebral infarction, unspecified (3) HTN (hypertension) Current Visit: Yes Status: Acute Assessment and plan: History of hypertension, continue amlodipine and hydralazine prn Qualifiers: Hypertension type: essential hypertension Qualified Code(s): I10 - Essential (primary) hypertension (4) HLD (hyperlipidemia) Current Visit: Yes Status: Acute Assessment and plan: Continue atorvastatin Qualifiers: Hyperlipidemia type: unspecified Qualified Code(s): E78.5 - Hyperlipidemia , unspecified (5) DVT prophylaxis Current Visit: Yes Status: Acute Assessment and plan: Heparin 5000 units SC BID (6) Tobacco abuse Current Visit: Yes Status: Acute Assessment and plan: On nicotine patch - Time Spent With Patient Total time spent is greater than 50% in coordination of care (as documented) at patient's floor/unit and/or counseling patient: - Subjective Interval history: Admitted for worsening confusion. No acute events overnight - Constitutional Vitals: Temp Pulse Resp BP Pulse Ox 97.6 F 78 16 147/80 97 09/09/17 11:27 09/09/17 11:27 09/09/17 11:27 09/09/17 11:27 09/09/17 11:27 General appearance: Present: cooperative, A&O X 1, pleasant, no acute distress - Head Head exam: Present: atraumatic, normocephalic - Eye Eye exam: Present: PERRL, conjuntiva pink, sclera anicteric Pupils: Present: PERRL - Neck Neck exam general surgery: Present: supple, trachea midline. Absent: lymphadenopathy - Respiratory Respiratory exam: Present: CTAB. Absent: accessory muscle use, rales, rhonchi, wheezes - Cardiovascular Cardiovascular exam: Present: RRR, +S1, +S2. Absent: diastolic murmur, gallop, rubs, systolic murmur - GI/Abdominal GI/Abdominal exam: Present: normal bowel sounds, soft, no peritoneal signs. Absent: distended, tenderness - Extremities Exam Extremities exam: Present: warm, radial pulses palpable and symmetrical. Absent : calf tenderness, cyanotic, pedal edema - Neurological Exam Neurological exam: Present: CN II-XII intact, oriented X3, no focal deficits. Absent: pronater drift, facial droop, speech deficit - Skin Skin exam: Present: dry, intact Internal Medicine: Result - Labs CBC & Chem 7: 09/08/17 04:01 09/08/17 04:01 - ABG Interpretation ABG results: PT/INR, D-dimer PT 10.6 Seconds (9.4-12.1) 09/03/17 10:58 - VTE Documentation of Mechanical Device: Intermittent pneumatic compression device Consult Discharge Plan - Plan Referrals: Cheo Bergman DO [Primary Care Provider] - 09/10/17 11:30 am
[2017-09-10] MEDS: *HR* Heparin 5,000 UNIT/ML VIAL SQ SCH ×2 (05:25→16:56)
[2017-09-10] MEDS: amLODIPine 5 MG TABLET PO SCH (07:39)
[2017-09-10] MEDS: Cyanocobalamin (B-12) 1,000 MCG TABLET PO SCH (07:39)
[2017-09-10] MEDS: Aspirin 81 MG TAB.CHEW PO SCH (07:40)
[2017-09-10] MEDS: FLUoxetine 20 MG CAPSULE PO SCH (07:40)
[2017-09-10] MEDS: Nicotine 21 MG PATCH.TD24 TD SCH (07:40)
[2017-09-10] MEDS: hydrOXYzine pamoate 25 MG CAPSULE PO SCH ×3 (07:40→21:34)
--- NOTE | 2017-09-10 12:13 | Internal Med Progress Note ---
Date of Encounter: 09/10/17 Time of Encounter: 12:00 - Assessment and plan (1) Mental status change Current Visit: Yes Status: Acute Assessment and plan: Mental status change with subacute cognitive decline with possible dementia. MRI showed cortical laminar necrosis. Labs significant for B12 deficiency. Started on B12 supplementation. Neuro also recommend starting on donepezil. Plan for discharge to assisted living once bed is available (2) CVA (cerebral vascular accident) Current Visit: Yes Status: Suspected Assessment and plan: Presents from neurology office with concern for increasing confusion since 06/14. During his initial neurology evaluation his MRI showed restricted diffusion in the parietal lobes bilaterally left greater than right. CVA, vs Vasculitis. In addition to confusion he has short-term memory loss. EEG showed no evidence of seizures. Plan for discharge on b12 supplementation and donepezil Qualifiers: CVA mechanism: unspecified Qualified Code(s): I63.9 - Cerebral infarction, unspecified (3) HTN (hypertension) Current Visit: Yes Status: Acute Assessment and plan: History of hypertension, continue amlodipine and hydralazine prn Qualifiers: Hypertension type: essential hypertension Qualified Code(s): I10 - Essential (primary) hypertension (4) HLD (hyperlipidemia) Current Visit: Yes Status: Acute Assessment and plan: Continue atorvastatin Qualifiers: Hyperlipidemia type: unspecified Qualified Code(s): E78.5 - Hyperlipidemia , unspecified (5) DVT prophylaxis Current Visit: Yes Status: Acute Assessment and plan: Heparin 5000 units SC BID (6) Tobacco abuse Current Visit: Yes Status: Acute Assessment and plan: On nicotine patch - Time Spent With Patient Total time spent is greater than 50% in coordination of care (as documented) at patient's floor/unit and/or counseling patient: - Subjective Interval history: Admitted for worsening confusion. No acute events overnight - Constitutional Vitals: Temp Pulse Resp BP Pulse Ox 99.1 F 81 16 157/87 97 09/10/17 07:37 09/10/17 07:37 09/10/17 07:37 09/10/17 07:37 09/10/17 07:37 General appearance: Present: cooperative, A&O X 1, pleasant, no acute distress - Head Head exam: Present: atraumatic, normocephalic - Eye Eye exam: Present: PERRL, conjuntiva pink, sclera anicteric Pupils: Present: PERRL - Neck Neck exam general surgery: Present: supple, trachea midline. Absent: lymphadenopathy - Respiratory Respiratory exam: Present: CTAB. Absent: accessory muscle use, rales, rhonchi, wheezes - Cardiovascular Cardiovascular exam: Present: RRR, +S1, +S2. Absent: diastolic murmur, gallop, rubs, systolic murmur - GI/Abdominal GI/Abdominal exam: Present: normal bowel sounds, soft, no peritoneal signs. Absent: distended, tenderness - Extremities Exam Extremities exam: Present: warm, radial pulses palpable and symmetrical. Absent : calf tenderness, cyanotic, pedal edema - Neurological Exam Neurological exam: Present: CN II-XII intact, oriented X3, no focal deficits. Absent: pronater drift, facial droop, speech deficit - Skin Skin exam: Present: dry, intact Internal Medicine: Result - Labs CBC & Chem 7: 09/08/17 04:01 09/08/17 04:01 - ABG Interpretation ABG results: PT/INR, D-dimer PT 10.6 Seconds (9.4-12.1) 09/03/17 10:58 - VTE Documentation of Mechanical Device: Intermittent pneumatic compression device Consult Discharge Plan - Plan Referrals: Cheo Bergman DO [Primary Care Provider] - 09/10/17 11:30 am (Patient is needed placement )
[2017-09-10] MEDS: hydrALAZINE 25 MG TABLET PO PRN (21:34)
[2017-09-11] MEDS: hydrALAZINE 25 MG TABLET PO PRN (06:10)
[2017-09-11] MEDS: *HR* Heparin 5,000 UNIT/ML VIAL SQ SCH (06:10)
[2017-09-11] MEDS: amLODIPine 5 MG TABLET PO SCH (10:51)
[2017-09-11] MEDS: Cyanocobalamin (B-12) 1,000 MCG TABLET PO SCH (10:52)
[2017-09-11] MEDS: hydrOXYzine pamoate 25 MG CAPSULE PO SCH (10:52)
[2017-09-11] MEDS: Nicotine 21 MG PATCH.TD24 TD SCH (10:52)
[2017-09-11] MEDS: FLUoxetine 20 MG CAPSULE PO SCH (10:52)
[2017-09-11] MEDS: Aspirin 81 MG TAB.CHEW PO SCH (10:52)
--- NOTE | 2017-09-11 14:05 | Internal Med Progress Note ---
Date of Encounter: 09/11/17 Time of Encounter: 09:00 - Assessment and plan (1) Mental status change Current Visit: Yes Status: Acute Assessment and plan: Mental status change with subacute cognitive decline with possible dementia. MRI showed cortical laminar necrosis. Labs significant for B12 deficiency. Cont on B12 supplementation. Neuro also recommend starting on donepezil Does need placement SW// CM working on it Medically stable to d/c ECF Qualifiers: Altered mental status type: unspecified Qualified Code(s): R41.82 - Altered mental status, unspecified (2) CVA (cerebral vascular accident) Current Visit: Yes Status: Suspected Assessment and plan: ruled out CVA cont ASA and Statin Qualifiers: CVA mechanism: unspecified Qualified Code(s): I63.9 - Cerebral infarction, unspecified (3) HTN (hypertension) Current Visit: Yes Status: Acute Assessment and plan: Fairly controlled continue amlodipine will inc Hydralazine to 50mg tid Qualifiers: Hypertension type: essential hypertension Qualified Code(s): I10 - Essential (primary) hypertension (4) HLD (hyperlipidemia) Current Visit: Yes Status: Acute Assessment and plan: Continue atorvastatin Qualifiers: Hyperlipidemia type: unspecified Qualified Code(s): E78.5 - Hyperlipidemia , unspecified (5) DVT prophylaxis Current Visit: Yes Status: Acute Assessment and plan: Heparin 5000 units SC BID (6) Tobacco abuse Current Visit: Yes Status: Acute Assessment and plan: On nicotine patch - Time Spent With Patient Total time spent is greater than 50% in coordination of care (as documented) at patient's floor/unit and/or counseling patient: - Subjective Interval history: Mr. Monge is a 72 year old male with a PMH of Dementia, HLD and HTN admitted here for acute delirium / AMS. He has been having worsening confusion since . 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 Neurology requested the patient be admitted here for further workup and evaluation as there is concern for cerebral ischemia. His CSF analysis did not show any malignant / infectious process. His EEG did not reveal any seizure. Only abnormal finding so far low vit B12. So Neuro suggested to continue vit B12 supplements. Pt is alert, awake , oriented to self only. Denied any CP / SOB - Constitutional Vitals: Temp Pulse Resp BP Pulse Ox 97.6 F 80 18 185/96 98 09/11/17 06:01 09/11/17 06:01 09/11/17 06:01 09/11/17 06:01 09/11/17 06:01 General appearance: Present: cooperative, A&O X 1, pleasant, no acute distress - Head Head exam: Present: atraumatic, normal inspection - Neck Neck exam general surgery: Present: supple - Respiratory Respiratory exam: Present: decreased breath sounds. Absent: rales, respiratory distress, rhonchi, wheezes - Cardiovascular Cardiovascular exam: Present: RRR, +S1, +S2. Absent: tachycardia - GI/Abdominal GI/Abdominal exam: Present: normal bowel sounds, soft. Absent: rebound, rigid, tenderness - Extremities Exam Extremities exam: Absent: calf tenderness, pedal edema, tenderness - Back Exam Back exam: Absent: CVA tenderness (L), CVA tenderness (R) - Neurological Exam Neurological exam: Present: alert Internal Medicine: Result - Labs CBC & Chem 7: 09/08/17 04:01 09/08/17 04:01 - ABG Interpretation ABG results: PT/INR, D-dimer PT 10.6 Seconds (9.4-12.1) 09/03/17 10:58 - VTE Documentation of Mechanical Device: Intermittent pneumatic compression device Consult Discharge Plan - Plan Referrals: Cheo Bergman DO [Primary Care Provider] - 09/10/17 11:30 am (Patient is needed placement )
--- NOTE | 2017-09-11 14:37 | Discharge Summary ---
- NOTES TO OUTPATIENT PROVIDER Notes to Outpatient Provider: f/u with PCP in one week. f/u with Neurology Dr. Ayon in 2 weeks Orders not resulted at time of discharge: Pending orders 09/05/17 16:40 SOPHY,CSF Stat CJD 14-3-3 Ptn Tau/Theta CSF Urgent Date of Encounter: 09/11/17 Time of Encounter: 14:35 - Discharge Diagnosis (1) Mental status change Priority: Primary Status: Acute Qualifiers: Altered mental status type: unspecified Qualified Code(s): R41.82 - Altered mental status, unspecified (2) CVA (cerebral vascular accident) Priority: Secondary Status: Ruled-out Qualifiers: CVA mechanism: unspecified Qualified Code(s): I63.9 - Cerebral infarction, unspecified (3) HTN (hypertension) Priority: Secondary Status: Acute Qualifiers: Hypertension type: essential hypertension Qualified Code(s): I10 - Essential (primary) hypertension (4) HLD (hyperlipidemia) Priority: Secondary Status: Acute Qualifiers: Hyperlipidemia type: unspecified Qualified Code(s): E78.5 - Hyperlipidemia , unspecified (5) DVT prophylaxis Priority: Secondary Status: Acute (6) Tobacco abuse Priority: Secondary Status: Acute (7) Dementia Priority: Secondary Status: Acute Qualifiers: Dementia type: vascular dementia Dementia behavioral disturbance: without behavioral disturbance Qualified Code(s): F01.50 - Vascular dementia without behavioral disturbance (8) B12 deficiency Priority: Secondary Status: Acute Hospital course: Mr. Monge is a 72 year old male with a PMH of Dementia, HLD and HTN admitted here for acute delirium / AMS. He has been having worsening confusion since . 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 Neurology requested the patient be admitted here for further workup and evaluation as there is concern for cerebral ischemia. His CSF analysis did not show any malignant / infectious process. His EEG did not reveal any seizure. Only abnormal finding so far low vit B12. So Neuro suggested to continue vit B12 supplements. Pt is alert, awake , oriented to self only. Will d/c him to ECF today in stable condition. - Time Spent with Patient Total time spent providing and/or coordinating discharge services: - Discharge Medications Home Medications: Atenolol [Tenormin] 75 mg PO DAILY 08/16/17 [History] Atorvastatin [Lipitor] 20 mg PO HS 08/16/17 [History] FLUoxetine HCl [Prozac] 20 mg PO DAILY 08/16/17 [History] amLODIPine [Norvasc] 10 mg PO DAILY 08/16/17 [History] Aspirin 81 mg PO DAILY tab.chew 09/11/17 [Rx] Atorvastatin [Lipitor] 40 mg PO HS tablet 09/11/17 [Rx] Cyanocobalamin (B-12) [Vitamin B12] 1,000 mcg PO DAILY tablet 09/11/17 [Rx] Donepezil [Aricept] 5 mg PO HS tablet 09/11/17 [Rx] Nicotine Patch [Nicoderm] 21 mg TD DAILY patch.td24 09/11/17 [Rx] hydrALAZINE [HydrALAZINE] 25 mg PO Q8HR tablet 09/11/17 [Rx] Allergies/Adverse Reactions: 3 Allergy/AdvReac Type Severity Reaction Status Date / Time No Known Allergies Allergy Verified 04/20/17 12:19 Date of admission: 09/04/17 15:07 Primary care physician: Cheo Bergman, Consults: 09/05/17 15:18 PT [Consult to Physical Therapy] [CONS] Routine Comment: Evaluate, develop and implement POC Reason for Consult: d/c planning Does patient have active BEDREST order?: No Is patient medically & hemodynamically stable?: Yes Patient assessed for mobility or mobilized this visit?: No - Constitutional Vitals: Temp Pulse Resp BP Pulse Ox 97.6 F 80 18 185/96 98 09/11/17 06:01 09/11/17 06:01 09/11/17 06:01 09/11/17 06:01 09/11/17 06:01 General appearance: Present: cooperative, A&O X 1, pleasant, no acute distress - Neck Neck exam general surgery: Present: supple - Respiratory Respiratory exam: Present: decreased breath sounds. Absent: rales, respiratory distress, rhonchi, wheezes - Cardiovascular Cardiovascular exam: Present: RRR, +S1, +S2. Absent: tachycardia - GI/Abdominal GI/Abdominal exam: Present: normal bowel sounds, soft. Absent: rebound, rigid, tenderness - Extremities Exam Extremities exam: Absent: calf tenderness, pedal edema, tenderness - Back Exam Back exam: Absent: CVA tenderness (L), CVA tenderness (R) - Neurological Exam Neurological exam: Present: alert - Psychiatric Psychiatric exam: Present: normal affect, normal mood - Patient Status Disposition: Transfer SNF Condition: Good Overall status at discharge: patient is back to baseline - Discharge Instructions Follow Up With: Cheo Bergman DO [Primary Care Provider] - 09/10/17 11:30 am (Patient is needed placement ) Jed Ayon DO [Partnered Physician] - Forms: ED Satisfaction Letter - Diet and Activity Activity: increase activity as tolerated Diet: low salt diet - VTE Documentation of Mechanical Device: Intermittent pneumatic compression device
--- NOTE | 2017-09-11 14:40 | Physician Discharge Referral ---
ExtendedCare Referral Info Transfer To: ECF Provider in Charge after Transfer: PCP Institutional Level of Care: Skilled - Diagnosis (1) Mental status change Status: Acute (2) CVA (cerebral vascular accident) Status: Ruled-out (3) HTN (hypertension) Status: Acute (4) HLD (hyperlipidemia) Status: Acute (5) DVT prophylaxis Status: Acute (6) Tobacco abuse Status: Acute (7) Dementia Status: Acute (8) B12 deficiency Status: Acute - Transfer Medications Home Medications: Atenolol [Tenormin] 75 mg PO DAILY 08/16/17 [History] Atorvastatin [Lipitor] 20 mg PO HS 08/16/17 [History] FLUoxetine HCl [Prozac] 20 mg PO DAILY 08/16/17 [History] amLODIPine [Norvasc] 10 mg PO DAILY 08/16/17 [History] Aspirin 81 mg PO DAILY tab.chew 09/11/17 [Rx] Atorvastatin [Lipitor] 40 mg PO HS tablet 09/11/17 [Rx] Cyanocobalamin (B-12) [Vitamin B12] 1,000 mcg PO DAILY tablet 09/11/17 [Rx] Donepezil [Aricept] 5 mg PO HS tablet 09/11/17 [Rx] Nicotine Patch [Nicoderm] 21 mg TD DAILY patch.td24 09/11/17 [Rx] hydrALAZINE [HydrALAZINE] 25 mg PO Q8HR tablet 09/11/17 [Rx] Allergies/Adverse Reactions: 3 Allergy/AdvReac Type Severity Reaction Status Date / Time No Known Allergies Allergy Verified 04/20/17 12:19 - Respiratory Orders Smoking Cessation: Smoking cessation has been advised. For more information, call the [place] Tobacco Quit Line at 0-995-RNPE-NOW. CERTIFICATION: I certify that the transfer of the above named patient to an Extended Care Facility is necessary for the continuing treatment of the diagnosis listed. The above information is true and accurate reflection of patient's current condition. Confidential - Redisclosure prohibited without a patient's written consent.
[2017-09-11] MEDS ORDERED: hydrALAZINE 25 MG TABLET PO SCH (16:00)
[2017-09-11 16:28] VITALS: BP 151/84
== END 2017-09-11 16:33 | DRG 948 ==
LOC: EMEROO 10:56 → 2NNU 10:56 → SUATTDRO 09-04 15:07 → 2ANU 09-06 12:03
PROVIDERS: ADMIT Student in an Organized Health Care Education/Training Program; ATTEND Student in an Organized Health Care Education/Training Program